=== PATIENT | female | born 2000 | race Hispanic/Latino ===

== ENCOUNTER 2022-10-30 23:01 | Emergency (ER) | payer SELFPAY ==
[~2022-10-30] VITALS: Ht 167.6 cm; Wt 50.3 kg
[2022-10-30 23:52] LABS: CLARITY,URINE CLOUDY (CLEAR); COLOR,URINE YELLOW (YELLOW)
[2022-10-30 23:53] LABS: KETONES,URINE NEGATIVE (NEGATIVE); LEUKOCYTE ESTERASE ,URINE NEGATIVE (NEGATIVE); NITRITE,URINE NEGATIVE (NEGATIVE); PROTEIN,URINE DIPSTICK 1+ (NEGATIVE); URINE UROBILINOGEN 0.2 mg/dL (0.2 - 1)
[2022-10-30 23:58] LABS: BACTERIA,URINE FEW /HPF; EPITHELIAL CELLS,URINE FEW /LPF; MUCUS,URINE FEW (RARE); RBC,URINE >50 /HPF (0-5)
[2022-10-31] MEDS ORDERED: PAXLOVID 150-11 EACH PO (00:42)
== END 2022-10-31 00:48 | disposition home or self-care (01) ==
LOC: ER 23:33
DX: R05.9 Cough, unspecified (principal); U07.1 COVID-19
CPT/HCPCS: 71046; 81001; 81025; 99283; U0002